=== PATIENT | female | born 1985 | race Caucasian/White ===

== ENCOUNTER → 2016-08-03 | Outpatient (CLI) | payer BC ==
--- NOTE | 2016-08-03 14:52 | RAD ---
Examination: 2 views of the right knee History: History of crepitus right knee Comparison: None available Findings: The alignment of the knee joint grossly appears unremarkable. There is no acute fracture or dislocation identified. Small knee joint effusion is identified. Impression: 1. No acute osseous findings. 2. Small knee joint effusion.
== END | disposition home or self-care (01) ==
LOC: DXRADRC 14:34
PROVIDERS: ATTEND Family Medicine
DX: M23.8X1 Other internal derangements of right knee (principal); M25.461 Effusion, right knee; X58.XXXD Exposure to other specified factors, subsequent encounter
CPT/HCPCS: 73560